=== PATIENT | male | born 1950 | race Caucasian/White ===

== ENCOUNTER 2017-04-30 12:24 | Inpatient (IN) | payer OTHER ==
[~2017-04-30] VITALS: Ht 170.2 cm; Wt 70.3 kg
[2017-04-30] MEDS ORDERED: LISINOPRIL20 MG PO (13:08)
[2017-04-30] MEDS ORDERED: TOPROL XL50 MG (13:08)
[2017-04-30] MEDS ORDERED: JANUMET 50-5001 EACH PO (13:09)
[2017-04-30] MEDS ORDERED: DYAZIDE 37.5-21 EACH PO (13:09)
[2017-04-30] MEDS ORDERED: ASA81 MG (13:09)
[2017-04-30] MEDS ORDERED: GLIPIZIDE ER5 MG PO (13:09)
[2017-04-30] MEDS ORDERED: LIPITOR40 MG (13:09)
[2017-05-24] MEDS ORDERED: TOPROL XL50 M1 PO (15:01)
[2017-05-24] MEDS ORDERED: FAMOTIDINE20 MG PO (15:01)
[2017-05-24] MEDS ORDERED: ENTECAVIR1 MG PO (15:01)
== END 2017-05-24 16:48 | disposition home or self-care (01) | DRG 442 ==
LOC: ER 12:24 → MEDJ 16:22 → SEC-K 16:22 → MEDJ 18:04
PROC: BW40ZZZ Ultrasonography of Abdomen (ICD-10-PCS; principal; 2017-04-30)
PROC: 8E0ZXY6 Isolation (ICD-10-PCS; 2017-04-30)
PROC: BW40ZZZ Ultrasonography of Abdomen (ICD-10-PCS; 2017-05-21)
DX: B16.9 Acute hepatitis B without delta-agent and without hepatic coma (principal); R18.8 Other ascites; E86.0 Dehydration; E11.65 Type 2 diabetes mellitus with hyperglycemia; I10 Essential (primary) hypertension; E78.4 Other hyperlipidemia; N20.0 Calculus of kidney

== ENCOUNTER → 2017-07-28 | Emergency (ER) | payer OTHER ==
[~2017-07-28] VITALS: Ht 165.1 cm; Wt 49.9 kg
[~2017-07-28] MED LIST: ASA81 MG; DYAZIDE 37.5-21 EACH PO; ENTECAVIR1 MG PO; FAMOTIDINE20 MG PO; GLIPIZIDE ER5 MG PO; HUMALOG100 UNIT/1; JANUMET 50-5001 EACH PO; LIPITOR40 MG; LISINOPRIL20 MG PO; TOPROL XL50 M1 PO; TOPROL XL50 MG
== END | disposition home or self-care (01) ==
LOC: ER 19:38
DX: R07.89 Other chest pain (principal); I10 Essential (primary) hypertension

== ENCOUNTER 2017-08-23 19:26 | Emergency (ER) | payer OTHER ==
[~2017-08-23] VITALS: Ht 170.2 cm; Wt 68.0 kg
[2017-08-23] MEDS ORDERED: AVAPRO300 MG (19:37)
[2017-08-23] MEDS ORDERED: CARVEDILOL6.25 MG (19:37)
== END 2017-08-24 00:17 | disposition home or self-care (01) ==
LOC: ER 19:26
DX: I10 Essential (primary) hypertension (principal)